=== PATIENT | male | born 1980 | race African-American/Black ===

== ENCOUNTER 2017-03-22 10:15 | Emergency (ER) | payer SELFPAY ==
[~2017-03-22] VITALS: Ht 177.8 cm; Wt 72.7 kg
[2017-03-22 10:19] VITALS: TEMP 98.9
[2017-03-22 11:02] LABS: COLLECTION METHOD CLEAN CATCH
[2017-03-22 11:08] LABS: BASO % 0.2 % (0.0-2.0); EOS # 0.2 (0.0-0.7); GRAN # 6.7 (1.4-6.5); GRAN % 67.7 % (42.2-75.2); HEMATOCRIT 45.7 % (42.0-52.0); HEMOGLOBIN 15.7 g/dl (13.5-18.0); LYMPH # 2.1 (1.2-3.4); LYMPH % 21.2 % (20.0-51.0); MEAN CELL VOLUME 85 fl (80.0-100.0); MEAN CORPUSCULAR HEMOGLOBIN 29 pg (27.0-31.0); MEAN CORPUSCULAR HGB CONC 34 g/dl (33.0-37.0); MEAN PLATELET VOLUME 9.4 fl (7.4-10.4); MONO # 0.9 (0.1-0.6); MONO % 8.8 % (1.7-9.3); PLATELET COUNT 337 K/mm3 (130-400); WHITE BLOOD COUNT 9.9 K/mm3 (4.8-10.8)
[2017-03-22 11:12] LABS: PH 6 (5-8); SQUAMOUS EPITHELIAL None Seen /hpf; URINE APPEARANCE Clear; URINE BACTERIA Rare /hpf; URINE BILIRUBIN Negative (NEGATIVE); URINE BLOOD Negative (NEGATIVE); URINE COLOR Yellow; URINE GLUCOSE Negative (NEGATIVE); URINE KETONE Negative (NEGATIVE); URINE LEUKOCYTE ESTERASE Trace (NEGATIVE); URINE PROTEIN(semi-quant) Negative (NEGATIVE); URINE UROBILINOGEN Negative (NEGATIVE)
[2017-03-22 11:14] LABS: URINE WBC 20-50 /hpf
[2017-03-22 11:23] LABS: ADJUSTED CALCIUM 9.3 mg/dL (8.4-10.2); ALBUMIN 4.7 gm/dL (3.5-5.0); BILIRUBIN,TOTAL 0.5 mg/dL (0.0-1.0); CALCIUM 9.9 mg/dL (8.4-10.2); CREATININE, serum 1.16 mg/dL (0.66-1.25); POTASSIUM 4.3 mmol/L (3.4-5.0); TOTAL PROTEIN 8.3 gm/dL (6.4-8.2)
[2017-03-22] MEDS ORDERED: CIPRO 500MG TA500 MG PO (11:49)
[2017-03-22 12:18] VITALS: BP 133/80; PULSE 88
== END 2017-03-22 12:19 | disposition home or self-care (01) ==
LOC: COL.ER 10:15
PROVIDERS: Emergency Medicine
DX: N39.0 Urinary tract infection, site not specified (principal); Z87.442 Personal history of urinary calculi
CPT/HCPCS: J0696; J7030